=== PATIENT | female | born 1995 | race Caucasian/White ===

== ENCOUNTER 2020-12-30 03:08 | Emergency (ER) | payer OTHER ==
[~2020-12-30] VITALS: Ht 167.6 cm; Wt 90.7 kg
[2020-12-30 03:12] VITALS: BP 156/118
[2020-12-30] MEDS ORDERED: CIPRODEX OTIC7.5 ML OTIC (03:22)
[2020-12-30] MEDS ORDERED: NORCO5 PO (03:22)
[2020-12-30] MEDS ORDERED: HYDROCORTISON-A10 ML OTIC (03:22)
== END 2020-12-30 04:00 | disposition home or self-care (01) ==
LOC: ER 03:08
DX: H60.92 Unspecified otitis externa, left ear (principal); I10 Essential (primary) hypertension; Z98.890 Other specified postprocedural states